=== PATIENT | female | born 1985 | race Hispanic/Latino ===

== ENCOUNTER 2017-12-16 14:47 | Emergency (ER) | payer SELFPAY ==
[2017-12-16 15:05] VITALS: BMI 23.5
[2017-12-16 15:07] VITALS: BP 110/77; PULSE 80; RESP 18; TEMP 98.7; O2SAT 100
--- NOTE | 2017-12-16 16:14 | C.PDOC ---
History Of Present Illness 32 yo female come in for evaluation of Right ankle pain, some swelling developed 30 min [employer] after sustained twisting injury, while walking outside. Pt sts, " heard some pop in my ankle". Pain is localized over lateral aspect Right ankle, worse with ambulation. Otherwise, pt denies deformity, weakness, sensory or vascular deficits to Right ankle. Time Seen by Provider: 12/16/17 15:09 Chief Complaint (Nursing): Lower Extremity Problem/Injury History Per: Patient Past Medical History Reviewed: Historical Data, Nursing Documentation, Vital Signs Vital Signs: Last Vital Signs Temp 98.7 F 12/16/17 15:05 Pulse 80 12/16/17 15:05 Resp 18 12/16/17 15:05 BP 110/77 12/16/17 15:05 Pulse Ox 100 12/16/17 15:05 - Medical History PMH: No Chronic Diseases Family History: States: No Known Family Hx - Social History Hx Alcohol Use: Yes Hx Substance Use: No - Immunization History Hx Tetanus Toxoid Vaccination: No Hx Influenza Vaccination: No Hx Pneumococcal Vaccination: No Review Of Systems Except As Marked, All Systems Reviewed And Found Negative. Eyes: Negative for: Vision Change Musculoskeletal: Positive for: Foot Pain (Right), Other (Right ankle). Negative for: Neck Pain, Back Pain Skin: Negative for: Bruising Neurological: Negative for: Weakness, Numbness Physical Exam - Physical Exam Appears: Well, Non-toxic, No Acute Distress Skin: Normal Color, Warm, No Rash, No Ecchymosis Head: Atraumatic, Normacephalic Eye(s): bilateral: PERRL Neck: Normal ROM, Trachea Midline, No Midline Cervical Tenderness, No Paracervical Tenderness, No Step Off Deformity, Supple Back: No Vertebral Tenderness, No Paraspinal Tenderness Extremity: Normal ROM (mild discomfort to Right ankle flexion due to pain.), Tenderness (lateral aspect Right ankle with trace edema. No palpable deformity, no ecchymoses.), Capillary Refill (less than 2sec to Right ankle), No Deformity , No Swelling Neurological/Psych: Oriented x3, Normal Speech, Normal Motor, Normal Sensation ED Course And Treatment O2 Sat by Pulse Oximetry: 100 - Other Rad Right ankle/foot X-Ray: Interpreted by Me, Viewed By Me Interpretation: (-) acute fx or dislocation Progress Note: On re-eavl, pt is afebrile, hemodynamicaly stable. Right ankle: tenderness over lateral malleolus, trace edema. No palpable deformity, no neurovascular deficits. Imaging review (-) acute fx or dislocation. Jonas wrap , Air cast applied to Right ankle. Crutches provided w/instruction. Pt has clinical finidngs c/w ankle sprain, ref. to f?u with Podiatry clinic in 2 days for re-eavl. return to Ed if any new changes. Disposition Counseled Patient/Family Regarding: Diagnosis, Need For Followup, Rx Given - Disposition Referrals: [facility] [Outside] Disposition: HOME/ ROUTINE Disposition Time: 16:11 Condition: STABLE Additional Instructions: SPLINT FOR 1-2 WEEKS USE CRUTCHES NEED FOLLOW UP WITH PODIATRY CLINIC ON MONDAY FROM NOON-3PM FOR RE-EVALUATION. RETURN TO ED IF ANY WORSENING OR NEW CHANGES. Prescriptions: Ibuprofen [Motrin Tab] 600 mg PO TID #20 tab Instructions: Ankle Sprain Forms: [facility] (Eth[place]ian), Work Excuse - Clinical Impression Clinical Impression: Ankle sprain
--- NOTE | 2017-12-16 18:24 | RAD ---
Date of service: 12/16/2017 PROCEDURE: Right Ankle Radiographs. HISTORY: injury COMPARISON: None FINDINGS: BONES: There is a linear lucency appearing horizontal at the lateral malleolus suspicious for nondisplaced fracture. Follow-up MRI or CT should be performed to confirm. Remainder of the bony elements of the right ankle appear intact without intrinsic pathology otherwise. JOINTS: No subluxation or dislocation. Ankle mortise and talar dome appear intact. SOFT TISSUES: Mild lateral malleolar soft tissue edema identified. OTHER FINDINGS: None. IMPRESSION: Nondisplaced fracture suspected at the right malleolus without additional fracture or dislocation. Follow-up MRI or CT can be performed to confirm as clinically warranted. PA review submitted.
--- NOTE | 2017-12-16 18:25 | RAD ---
Date of service: 12/16/2017 PROCEDURE: Right Foot Radiographs. HISTORY: injury COMPARISON: None. FINDINGS: BONES: No acute fracture or destructive bony lesion identified. JOINTS: Hallux valgus deformity appreciated. No subluxation or dislocation. SOFT TISSUES: Normal. OTHER FINDINGS: None. IMPRESSION: Hallux valgus deformity. No acute fracture dislocation.
== END 2017-12-16 16:35 | disposition home or self-care (01) ==
LOC: C.ER 14:47
DX: S93.401A Sprain of unspecified ligament of right ankle, initial encounter (principal); X50.1XXA Overexertion from prolonged static or awkward postures, initial encounter; Y93.01 Activity, walking, marching and hiking; Y92.89 Other specified places as the place of occurrence of the external cause